=== PATIENT | male | born 1965 | race African-American/Black ===

== ENCOUNTER 2022-09-08 20:39 | Inpatient (IN) | payer SELFPAY ==
[~2022-09-08] VITALS: Ht 172.7 cm; Wt 64.0 kg
[2022-09-08 22:44] LABS: BASOPHILS % 0.8 % (0.0-2.0); EOSINOPHILS % 2.6 % (0.0-5.0); HEMATOCRIT. 39.1 % (42.0-52.0); HEMOGLOBIN. 13.1 g/dL (14.0-18.0); LYMPHOCYTES % 45.3 % (20.0-50.0); MEAN CORPUSCULAR HEMOGLOBIN 28.5 pg (28.0-32.0); MEAN CORPUSCULAR VOLUME 85.6 fL (80.0-94.0); MEAN PLATELET VOLUME 6.2 fl (7.4-10.4); MONOCYTES % 9.7 % (2.0-8.0); NEUTROPHILS % 41.6 % (40.0-76.0); PLATELET 408 x1000/uL (130-400); RED BLOOD CELL COUNT 4.57 mill/uL (4.7-6.1); RED CELL DISTRIBUTION WIDTH 13.9 % (11.6-14.6)
[2022-09-08 22:51] LABS: CHLORIDE 106 mEq/L (98-107)
[2022-09-08 23:08] LABS: ETHANOL BLOOD < 10 mg/dL
[2022-09-09] MEDS ORDERED: ACETAMINOPHEN 325MG TABLET PO PRN ×2 (00:45)
[2022-09-09] MEDS ORDERED: DOCUSATE SODIUM 100MG CAPSULE PO PRN (00:45)
[2022-09-09] MEDS ORDERED: MAGNESIUM/ALUMINUM HYDROXIDE/SIMETHICONE 30ML UDC PO PRN (00:45)
[2022-09-09] MEDS ORDERED: ONDANSETRON HCL 4MG/2ML INJ IV PRN (00:45)
[2022-09-09] MEDS ORDERED: HYDROCODONE/ACETAMINOPHEN 5/325MG TABLET PO PRN (00:45)
[2022-09-09] MEDS ORDERED: IPRATROPIUM/ALBUTEROL 0.5-3(2.5)MG/3ML NEB HHN PRN (00:45)
[2022-09-09] MEDS ORDERED: GUAIFENESIN 200MG/10ML SUGAR FREE UDC PO PRN (00:45)
[2022-09-09] MEDS ORDERED: CLONIDINE 0.1MG TABLET PO PRN (00:45)
[2022-09-09 06:48] LABS: EOSINOPHILS % 2.8 % (0.0-5.0); HEMATOCRIT. 38.7 % (42.0-52.0); HEMOGLOBIN. 12.9 g/dL (14.0-18.0); LYMPHOCYTES % 49.6 % (20.0-50.0); MEAN CORPUSCULAR HEMOGLOBIN 28.8 pg (28.0-32.0); MEAN CORPUSCULAR VOLUME 86.1 fL (80.0-94.0); MEAN PLATELET VOLUME 6.6 fl (7.4-10.4); MONOCYTES % 11.8 % (2.0-8.0); NEUTROPHILS % 34.8 % (40.0-76.0); PLATELET 395 x1000/uL (130-400); RED BLOOD CELL COUNT 4.49 mill/uL (4.7-6.1); RED CELL DISTRIBUTION WIDTH 13.8 % (11.6-14.6)
[2022-09-09 06:51] LABS: CHLORIDE 106 mEq/L (98-107)
[2022-09-09 07:04] LABS: HDL CHOLESTEROL 70 mg/dL (40-59); LDL CHOLESTEROL 70 mg/dL (5-100); PHOSPHORUS 3.8 mg/dL (2.5-4.9); T4 FREE 0.78 ng/dL (0.76-1.46); TOTAL IRON BINDING CAPACITY 258 ug/dL (250-450)
[2022-09-09 07:24] LABS: VITAMIN B12 SERUM 183 pg/mL (211-911)
[2022-09-09 09:02] LABS: CLARITY URINE CLEAR (CLEAR); COLOR URINE YELLOW (YELLOW); KETONES URINE NEGATIVE (NEGATIVE); LEUKOCYTE ESTERASE URINE NEGATIVE (NEGATIVE); NITRITE URINE NEGATIVE (NEGATIVE); OCCULT BLOOD URINE NEGATIVE (NEGATIVE); PH URINE 6.5 (4.5-8.0); PROTEIN URINE TRACE (NEGATIVE); SPECIFIC GRAVITY URINE 1.028 (1.005-1.030)
[2022-09-09 09:36] LABS: *AMPHETAMINES SCREEN URINE NEGATIVE (NEGATIVE); *BARBITURATES SCREEN URINE NEGATIVE (NEGATIVE); *BENZODIAZEPINES SCREEN URINE NEGATIVE (NEGATIVE); *COCAINE SCREEN URINE NEGATIVE (NEGATIVE); CANNABINOID URINE SCREEN PRESUMTIVE POSITIVE (NEGATIVE); METHADONE URINE SCREEN NEGATIVE (NEGATIVE); OPIATES URINE SCREEN NEGATIVE (NEGATIVE); PHENCYCLIDINE URINE SCREEN NEGATIVE (NEGATIVE)
[2022-09-09 12:00] VITALS: BP 135/82
[2022-09-09 13:00] VITALS: BP 135/82
[2022-09-09] MEDS: ENOXAPARIN 40MG/0.4ML SYR SUBCUT SCH (14:55)
[2022-09-09] MEDS: HALOPERIDOL 5MG TABLET PO SCH ×2 (14:55→18:32)
[2022-09-09 16:00] VITALS: BP 103/35
[2022-09-09 20:00] VITALS: BP 101/66
[2022-09-09] MEDS: BENZTROPINE MESYLATE 0.5MG TABLET PO SCH (20:24)
[2022-09-09] MEDS ORDERED: NALOXONE HCL 0.4MG/ML VIAL IV PRN (23:45)
[2022-09-10] VITALS: BP 130/80
[2022-09-10 04:00] VITALS: BP 152/77
[2022-09-10 08:00] VITALS: BP 119/62
[2022-09-10] MEDS: HALOPERIDOL 5MG TABLET PO SCH ×2 (09:36→17:00)
[2022-09-10] MEDS: BENZTROPINE MESYLATE 0.5MG TABLET PO SCH ×2 (09:37→21:00)
[2022-09-10] MEDS: ENOXAPARIN 40MG/0.4ML SYR SUBCUT SCH (09:40)
[2022-09-10 20:00] VITALS: BP 105/49
[2022-09-11] VITALS: BP 109/73
[2022-09-11 04:00] VITALS: BP 102/75
[2022-09-11 08:00] VITALS: BP 122/68
[2022-09-11] MEDS: HALOPERIDOL 5MG TABLET PO SCH ×2 (08:19→16:33)
[2022-09-11] MEDS: ENOXAPARIN 40MG/0.4ML SYR SUBCUT SCH (08:19)
[2022-09-11] MEDS: BENZTROPINE MESYLATE 0.5MG TABLET PO SCH (08:19)
[2022-09-11 12:42] VITALS: BP 122/68
[2022-09-11 16:00] VITALS: BP 102/67
== END 2022-09-11 17:33 | disposition home or self-care (01) | DRG 52 ==
LOC: ER 20:39 → 8WST 23:56 → SUPCPDRO 09-09 00:08
PROVIDERS: ADMIT Internal Medicine; ATTEND Internal Medicine
DX: G93.40 Encephalopathy, unspecified (principal); E44.1 Mild protein-calorie malnutrition; D64.9 Anemia, unspecified; D75.839 Thrombocytosis, unspecified; F20.9 Schizophrenia, unspecified; F12.10 Cannabis abuse, uncomplicated; Z20.822 Contact with and (suspected) exposure to COVID-19; Z68.21 Body mass index [BMI] 21.0-21.9, adult
CPT/HCPCS: 36415; 71045; 80053; 80061; 80305; 80307; 80320; 80329; 81003; 82140; 82607; 82746; 83540; 83550; 83735; 84100; 84439; 84443; 85025; 87426; 93005; 93970; 99285; J1630; J1650; G0480